=== PATIENT | male | born 1990 | race Caucasian/White ===

== ENCOUNTER 2019-12-25 14:40 | Emergency (ER) | payer MEDICAID ==
[~2019-12-25] VITALS: Ht 175.3 cm; Wt 66.2 kg
[2019-12-25 14:47] VITALS: BP 109/75; Ht 175.3 cm; Wt 66.2 kg
== END 2019-12-25 15:40 | disposition home or self-care (01) ==
LOC: ED 14:40
DX: T15.12XA Foreign body in conjunctival sac, left eye, initial encounter (principal); T15.11XA Foreign body in conjunctival sac, right eye, initial encounter; H10.33 Unspecified acute conjunctivitis, bilateral; F17.210 Nicotine dependence, cigarettes, uncomplicated; Z71.6 Tobacco abuse counseling; W45.8XXA Other foreign body or object entering through skin, initial encounter; Y93.89 Activity, other specified; Y92.89 Other specified places as the place of occurrence of the external cause; Y99.8 Other external cause status
CPT/HCPCS: 99406